=== PATIENT | male | born 1960 | race Caucasian/White ===

== ENCOUNTER 2018-05-14 22:22 | Inpatient (IN) ==
[2018-05-15 00:49] LABS: INR 0.9; PT Patient Result 10.2 SECS; Partial Thromboplastin Time 21.7 SECS (0-40)
[2018-05-15 00:50] LABS: Basophils % 0.2 % (0.0-0.8); Eosinophils % 0.1 % (0.00-10.9); Hematocrit 45.7 VOL% (42.0-52.0); Hemoglobin 15.1 GM/DL (14.0-18.0); Immature Granulocytes % 1.4 %; Immature Granulocytes Absolute 0.25 #; Lymphocytes # 0.8 10*3/uL (1.4-4.0); Lymphocytes % 4.4 % (21.2-54.2); Mean Corpuscular Hemoglobin 29 PG (27-34); Mean Corpuscular Volume 87.2 FL (87-102); Monocytes # 0.9 10*3/uL (0.11-0.8); Monocytes % 5.2 % (1.7-12.7); Neutrophils # 15.5 10*3/uL (1.4-7.4); Neutrophils % 88.7 % (38.7-73.9); Platelet Count 238 T/CUMM (130-400); Red Blood Count 5.24 MC/CUMM (3.8-5.5); Red Cell Distribution Width 12.4 % (9.3-17.3); White Blood Count 17.4 T/CUMM (4-12)
[2018-05-15] MEDS: HYDROmorphone 2 MG/1 ML VIAL IV PRN ×2 (00:50→05:02)
[2018-05-15] MEDS: ONDANSETRON 4 MG/2 ML VIAL IV PRN ×3 (00:53→22:46)
[2018-05-15 01:04] LABS: Albumin 3.9 G/DL (3.4-5.0); Bilirubin,Total 0.5 MG/DL (0.2-1.0); Calcium 8.6 MG/DL (8.5-10.1); Osmolality,Calculated 278.7 MOS/KG (273-304); Potassium 4.5 MMOL/L (3.5-5.1); Total Protein 7.5 G/DL (6.4-8.3)
[2018-05-15] MEDS: SODIUM CHLORIDE 0.45% 1,000 ML IV SCH ×3 (03:00→19:08)
[2018-05-15 03:08] LABS: Band Neutrophils 3 % (0-10); Lymphocytes 2 % (20-55); Metamyelocytes 1 %; Platelet Estimate Normal; Segmented Neutrophils 88 % (50-85); Total Cells Counted 100
[2018-05-15] MEDS ORDERED: HYDROmorphone 2 MG/1 ML VIAL ONE (08:14)
[2018-05-15] MEDS ORDERED: ONDANSETRON 4 MG/2 ML VIAL ONE ×2 (08:14→10:57)
[2018-05-15] MEDS ORDERED: HYDROmorphone 2 MG/1 ML VIAL IV PRN (08:18)
[2018-05-15] MEDS ORDERED: ONDANSETRON 4 MG/2 ML VIAL IV PRN (08:18)
[2018-05-15] MEDS ORDERED: HYDROmorphone 2 MG/1 ML VIAL IV ONE (08:21)
[2018-05-15] MEDS ORDERED: ceFAZolin 2,000 MG in PREMIX 1 EACH IV ONE (08:30)
[2018-05-15] MEDS ORDERED: BISACODYL 10 MG SUPP RECTAL PRN (10:28)
[2018-05-15] MEDS ORDERED: NALOXONE 0.4 MG/ML VIAL IV PRN (10:28)
[2018-05-15] MEDS ORDERED: MAGNESIUM HYDROXIDE SUSP 30 ML UDCUP PO PRN (10:28)
[2018-05-15] MEDS ORDERED: PROMETHAZINE 25 MG/1 ML VIAL IM PRN (10:28)
[2018-05-15] MEDS ORDERED: LACTULOSE 20 GM/30 ML UDCUP PO PRN (10:28)
[2018-05-15] MEDS ORDERED: MORPHINE PCA 30 MG/30 ML SYRINGE IV SCH (10:30)
[2018-05-15] MEDS ORDERED: MORPHINE 4 MG/1 ML VIAL IV PRN ×2 (10:32→10:35)
[2018-05-15] MEDS ORDERED: PROPOFOL 200 MG/20 ML VIAL IV ONE (10:56)
[2018-05-15] MEDS ORDERED: SEVOFLURANE 1 UNIT/15 MINUTE INH ONE (10:56)
[2018-05-15] MEDS ORDERED: fentaNYL 100 MCG/2 ML VIAL ONE (10:57)
[2018-05-15] MEDS ORDERED: GLYCOPYRROLATE 0.4 MG/2 ML VIAL ONE (10:57)
[2018-05-15] MEDS ORDERED: KETOROLAC 30 MG/1 ML VIAL ONE (10:57)
[2018-05-15] MEDS ORDERED: MIDAZOLAM 2 MG/2 ML VIAL ONE (10:57)
[2018-05-15] MEDS ORDERED: DEXAMETHASONE 10 MG/1 ML VIAL ONE (10:57)
[2018-05-15] MEDS ORDERED: NEOSTIGMINE 10 MG/10 ML VIAL ONE (10:58)
[2018-05-15] MEDS ORDERED: ACETAMINOPHEN 1,000 MG/100 ML VIAL IV ONE (10:58)
[2018-05-15] MEDS ORDERED: PHENYLEPHRINE 1 MG/10 ML SYRINGE IV ONE (10:58)
[2018-05-15] MEDS ORDERED: ROCURONIUM 100 MG/10 ML VIAL IV ONE (10:58)
[2018-05-15] MEDS ORDERED: MORPHINE PCA 30 MG/30 ML SYRINGE IV ONE (11:06)
[2018-05-15] MEDS: LACTATED RINGERS 1,000 ML IV SCH ×2 (12:12→22:15)
[2018-05-15] MEDS: ceFAZolin 1,000 MG in SYRINGE 1 EACH IV SCH (17:30)
[2018-05-16] MEDS: ceFAZolin 1,000 MG in SYRINGE 1 EACH IV SCH ×3 (00:37→15:55)
[2018-05-16] MEDS: SODIUM CHLORIDE 0.45% 1,000 ML IV SCH (02:40)
[2018-05-16] MEDS: ONDANSETRON 4 MG/2 ML VIAL IV PRN ×3 (12:00→23:30)
[2018-05-17] MEDS: ceFAZolin 1,000 MG in SYRINGE 1 EACH IV SCH (00:31)
[2018-05-17 10:03] VITALS: BP 148/84
== END 2018-05-17 12:58 | disposition home or self-care (01) | DRG 494 ==
LOC: N.ED 22:22 → N.EDINP 05-15 00:32 → N.3E 05-15 01:44
PROVIDERS: ADMIT Orthopaedic Surgery; ATTEND Orthopaedic Surgery